=== PATIENT | female | born 1985 | race Caucasian/White ===

== ENCOUNTER 2017-05-07 22:52 | Emergency (ER) | payer BC, SELFPAY | END 2017-05-08 02:50 | disposition home or self-care (01) | LOC: ER 22:52 | DX: N83.201 Unspecified ovarian cyst, right side (principal); R31.29 Other microscopic hematuria; F17.210 Nicotine dependence, cigarettes, uncomplicated; Z90.710 Acquired absence of both cervix and uterus; Z88.2 Allergy status to sulfonamides | CPT/HCPCS: 36415 ==